=== PATIENT | male | born 1985 ===

== ENCOUNTER 2017-07-24 09:16 | Emergency (ER) | payer MEDICAID ==
[2017-07-24 09:26] VITALS: BMI 24.6
[2017-07-24] MEDS ORDERED: Sodium Chloride 0.9% 1,000 ML IV STA (10:11)
[2017-07-24 10:52] LABS: BASO % 0.3 % (0.0-2.0); EOS # 0.4 K/uL (0.0-0.7); EOS % 4.8 % (0.0-4.0); LYMPH # 0.8 K/uL (1.0-4.3); LYMPH % 8.6 % (20.0-40.0); MEAN CELL VOLUME 82.5 fl (80.0-94.0); MEAN CORPUSCULAR HEMOGLOBIN 27.3 pg (27.0-31.0); MEAN CORPUSCULAR HGB CONC 33.1 g/dL (33.0-37.0); MEAN PLATELET VOLUME 10.1 fl (7.2-11.7); MONO # 0.5 K/uL (0.0-0.8); NEUT # 7.3 K/uL (1.8-7.0); NEUT % 81.3 % (50.0-75.0); NRBC % 0.1 % (0.0-0.0); PLATELET COUNT 239 K/uL (130-400); RBC 5.87 Mil/uL (4.40-5.90); RED CELL DISTRIBUTION WIDTH 13.3 % (11.5-14.5); WHITE BLOOD COUNT 8.9 K/uL (4.8-10.8)
[2017-07-24 10:59] LABS: ALB/GLOB RATIO 1.3 (1.0-2.1); ALBUMIN 3.9 g/dL (3.5-5.0); ALT/SGPT 47 U/L (21-72); AST/SGOT 28 U/L (17-59); BLOOD UREA NITROGEN 7 mg/dl (9-20); CALCIUM 9.2 mg/dL (8.4-10.2); GFR AFRICAN-AMERICAN > 60; GFR NON-AFRICAN AMERICAN > 60; LIPASE 59 U/L (23-300)
--- NOTE | 2017-07-24 11:20 | ED PDOC ---
HPI: Abdomen Time Seen by Provider: 07/24/17 09:38 Chief Complaint (Nursing): Abdominal Pain Chief Complaint (Provider): Abdominal Pain History Per: Patient History/Exam Limitations: no limitations Onset/Duration Of Symptoms: Days (x5) Outside of [place] travel?: No Current Symptoms Are (Timing): Still Present Pain Scale Rating Of: 8 Location Of Pain/Discomfort: Epigastric Associated Symptoms: Vomiting, Diarrhea. denies: Fever Additional Complaint(s): Deuce Weeks is a 31 year old male, with a past medical history of gastritis, and hiatal hernia, who presents to the emergency department complaining of constant epigastric abdominal pain associated with vomiting and diarrhea onset for x5 days. Patient states the pain radiates to the mid back and has been constant during day and night. He reports several episodes of vomiting and diarrhea but only one episode of loose stools. No recent alcohol or drug use. He did not take any medication for current symptoms. He denies any fever, sick contacts or recent travels. No further medical complaints. PMD: None provided. Past Medical History Reviewed: Historical Data, Nursing Documentation, Vital Signs Vital Signs: Last Vital Signs Temp 97 F L 07/24/17 09:32 Pulse 103 H 07/24/17 09:32 Resp 18 07/24/17 09:32 BP 126/79 07/24/17 09:32 Pulse Ox 98 07/24/17 15:19 - Medical History PMH: Hiatal Hernia - Surgical History Surgical History: No Surg Hx - Family History Family History: States: Unknown Family Hx - Social History Current smoker - smoking cessation education provided: Yes (Heavy smoker >10 cigarettes daily) Alcohol: Occasional Drugs: Denies - Immunization History Hx Tetanus Toxoid Vaccination: No Hx Influenza Vaccination: No - Home Medications Home Medications: Ambulatory Orders Medication Instructions Recorded Ciprofloxacin HCl [Cipro] 500 mg PO BID #14 tablet 07/24/17 Metronidazole [Flagyl] 500 mg PO BID #14 tablet 07/24/17 - Allergies Allergies/Adverse Reactions: Allergies Allergy/AdvReac Type Severity Reaction Status Date / Time No Known Allergies Allergy Verified 07/24/17 09:32 Review of Systems ROS Statement: Except As Marked, All Systems Reviewed And Found Negative Constitutional: Negative for: Fever Gastrointestinal: Positive for: Vomiting, Abdominal Pain (epigastric), Diarrhea Physical Exam - Reviewed Nursing Documentation Reviewed: Yes Vital Signs Reviewed: Yes - Physical Exam Appears: Positive for: Non-toxic, Uncomfortable Head Exam: Positive for: ATRAUMATIC, NORMAL INSPECTION Skin: Positive for: Normal Color, Warm, Dry Eye Exam: Positive for: Normal appearance, EOMI Neck: Positive for: Painless ROM, Supple Cardiovascular/Chest: Positive for: Regular Rate, Rhythm. Negative for: Murmur Respiratory: Positive for: Normal Breath Sounds. Negative for: Respiratory Distress Gastrointestinal/Abdominal: Positive for: Tenderness (epigastric, RUQ, RLQ). Negative for: Guarding, Rebound Extremity: Positive for: Normal ROM. Negative for: Deformity, Swelling Neurologic/Psych: Positive for: Alert, Oriented - Laboratory Results Result Diagrams: 07/24/17 10:42 07/24/17 10:42 - ECG O2 Sat by Pulse Oximetry: 98 (RA) Pulse Ox Interpretation: Normal Medical Decision Making Medical Decision Making: Initial Impression: abdominal pain. Differential diagnoses includes: cholecystitis, pancreatitis, gastritis, acute appendicitis Initial Plan: --Urine dipstick --CBC w/ differential --Morphine 4 mg IVP --NS IV 1,000 ml @ 1,000 mls/hr --Zofran Inj 4 mg IV --Abdomen Limited (GB INCLUDED) [US] --reevaluation 11:31 Abdomen US FINDINGS: LIVER: Measures 17.0 cm in length. Normal echogenicity of the liver parenchyma. No mass. No intrahepatic bile duct dilatation. GALLBLADDER: Unremarkable. No gallstones. No sonographic Pack sign. Moderate gallbladder distention is appreciated. COMMON BILE DUCT: Measures 2.7 mm. No stones. No dilatation. PANCREAS: Unremarkable as visualized. No mass. No ductal dilatation. RIGHT KIDNEY: Measures 10.0 cm in length. Normal echogenicity. No calculus, mass, or hydronephrosis. AORTA: No aneurysmal dilatation. IVC: Unremarkable. OTHER FINDINGS: None . IMPRESSION: Unremarkable limited abdomen ultrasound as per above. 14:58 Abdomen/Pelvis CT FINDINGS: LOWER THORAX: Unremarkable. LIVER: Hepatic steatosis. No focal masses. No intrahepatic bile duct dilatation or perihepatic ascites. GALLBLADDER AND BILE DUCTS: Unremarkable. PANCREAS: Unremarkable. No gross lesion or ductal dilatation. SPLEEN: Unremarkable. ADRENALS: Unremarkable. No mass. KIDNEYS AND URETERS: Unremarkable. No hydronephrosis. No solid mass. VASCULATURE: Unremarkable. No aortic aneurysm. BOWEL: Severe a ileitis with sparing of the terminal ileum, ileocecal valve region. Proximal dilatation without florid obstruction identified. Areas of the descending colon displays similar, less pronounced features, the overall appearance suggests post disease including Crohn's ileitis APPENDIX: Normal appendix. PERITONEUM: Unremarkable. No free fluid. No free air. LYMPH NODES: Unremarkable. No enlarged lymph nodes. BLADDER: Unremarkable. REPRODUCTIVE: Unremarkable. BONES: No acute fracture. OTHER FINDINGS: None. IMPRESSION: Severe ileitis without involvement of the ileocecal valve region. Less pronounced inflammatory changes are seen in the descending colon. The most likely etiology is Crohn's disease. No free air, free fluid, drainable collection. No evidence of closed loop obstruction. Scribe Attestation: Documented by Ghassan Case, acting as a scribe for Leo Zaldivar MD Provider Scribe Attestation: All medical record entries made by the Scribe were at my direction and personally dictated by me. I have reviewed the chart and agree that the record accurately reflects my personal performance of the history, physical exam, medical decision making, and the department course for this patient. I have also personally directed, reviewed, and agree with the discharge instructions and disposition. Disposition - Clinical Impression Clinical Impression: Abdominal pain, Colitis - Patient ED Disposition Is Patient to be Admitted: No Doctor Will See Patient In The: Office Counseled Patient/Family Regarding: Studies Performed, Diagnosis - Disposition Referrals: [facility] [Outside] Melanie WEST,MD Herminio [Medical Doctor] - Disposition: Routine/Home Disposition Time: 15:36 Condition: GOOD Additional Instructions: Take your medications as instructed. Follow up with your PCP in 2-3 days. Prescriptions: Ciprofloxacin HCl [Cipro] 500 mg PO BID #14 tablet Metronidazole [Flagyl] 500 mg PO BID #14 tablet Instructions: Colitis (ED)
--- NOTE | 2017-07-24 11:33 | US ---
HISTORY: abdominal pain COMPARISON: None. TECHNIQUE: Sonographic evaluation of the right upper quadrant of the abdomen. FINDINGS: LIVER: Measures 17.0 cm in length. Normal echogenicity of the liver parenchyma. No mass. No intrahepatic bile duct dilatation. GALLBLADDER: Unremarkable. No gallstones. No sonographic Pack sign. Moderate gallbladder distention is appreciated. COMMON BILE DUCT: Measures 2.7 mm. No stones. No dilatation. PANCREAS: Unremarkable as visualized. No mass. No ductal dilatation. RIGHT KIDNEY: Measures 10.0 cm in length. Normal echogenicity. No calculus, mass, or hydronephrosis. AORTA: No aneurysmal dilatation. IVC: Unremarkable. OTHER FINDINGS: None . IMPRESSION: Unremarkable limited abdomen ultrasound as per above.
[2017-07-24 12:57] LABS: EOSINOPHIL 4 % (0-7); LYMPHOCYTE 7 % (20-50); MONOCYTE 6 % (0-10); NEUTROPHIL 83 % (42-75); PLATELET ESTIMATE NORMAL (NORMAL); TOTAL CELLS COUNTED 100
[2017-07-24] MEDS ORDERED: Morphine 4 MG/ML VIAL ONE (13:19)
[2017-07-24] MEDS ORDERED: Iohexol 300 100 ML IJ ONE (13:42)
--- NOTE | 2017-07-24 15:00 | CT ---
PROCEDURE: CT Abdomen and Pelvis with contrast HISTORY: abdominal pain COMPARISON: None. TECHNIQUE: Contrast dose: 100 cc Visipaque 320 Radiation dose: Total exam DLP = 484.11 1st mGy-cm. This CT exam was performed using one or more of the following dose reduction techniques: Automated exposure control, adjustment of the mA and/or kV according to patient size, and/or use of iterative reconstruction technique. FINDINGS: LOWER THORAX: Unremarkable. LIVER: Hepatic steatosis. No focal masses. No intrahepatic bile duct dilatation or perihepatic ascites. GALLBLADDER AND BILE DUCTS: Unremarkable. PANCREAS: Unremarkable. No gross lesion or ductal dilatation. SPLEEN: Unremarkable. ADRENALS: Unremarkable. No mass. KIDNEYS AND URETERS: Unremarkable. No hydronephrosis. No solid mass. VASCULATURE: Unremarkable. No aortic aneurysm. BOWEL: Severe a ileitis with sparing of the terminal ileum, ileocecal valve region. Proximal dilatation without florid obstruction identified. Areas of the descending colon displays similar, less pronounced features, the overall appearance suggests post disease including Crohn's ileitis APPENDIX: Normal appendix. PERITONEUM: Unremarkable. No free fluid. No free air. LYMPH NODES: Unremarkable. No enlarged lymph nodes. BLADDER: Unremarkable. REPRODUCTIVE: Unremarkable. BONES: No acute fracture. OTHER FINDINGS: None. IMPRESSION: Severe ileitis without involvement of the ileocecal valve region. Less pronounced inflammatory changes are seen in the descending colon. The most likely etiology is Crohn's disease. No free air, free fluid, drainable collection. No evidence of closed loop obstruction.
[2017-07-24 15:45] VITALS: BP 132/74; PULSE 86; RESP 19; TEMP 98.6; O2SAT 100
== END 2017-07-24 15:45 | disposition home or self-care (01) ==
LOC: H.ER 09:16
DX: K52.9 Noninfective gastroenteritis and colitis, unspecified (principal)
CPT/HCPCS: 74177; 76705; 80053; 83690; 85025; 96374; 99283; J2270; J2405; J7040; Q9967

== ENCOUNTER 2018-03-29 10:05 | Emergency (ER) | payer SELFPAY ==
[2018-03-29 10:06] VITALS: BMI 24.6
[2018-03-29 10:12] VITALS: RESP 18; TEMP 98
[2018-03-29] MEDS ORDERED: Sodium Chloride 0.9% 1,000 ML IV STA (10:44)
--- NOTE | 2018-03-29 11:11 | ED PDOC ---
HPI: Abdomen Time Seen by Provider: 03/29/18 10:21 Chief Complaint (Nursing): Abdominal Pain Chief Complaint (Provider): Abdominal Pain History Per: Patient History/Exam Limitations: no limitations Onset/Duration Of Symptoms: Days (x2 weeks) Current Symptoms Are (Timing): Still Present Additional Complaint(s): 32-year-old male presenting for evaluation of abdominal pain x2 weeks. Patient states hes had intermittent, non-radiating epigastric abdominal pain. He reports episodes occur 3 times a day, everday, and are associated with nausea, vomiting, diarrhea, and diarrhea with blood. Patient also reports feeling feverish for the past few days. He states symptoms are worse when he eats and his last episode of diarrhea was yesterday afternoon after eating. He denies any history of abdominal surgery or urinary symptoms. Past Medical History Vital Signs: Last Vital Signs Temp 98.0 F 03/29/18 13:45 Pulse 65 03/29/18 13:45 Resp 18 03/29/18 13:45 BP 121/73 03/29/18 13:45 Pulse Ox 98 03/29/18 13:57 - Medical History PMH: Hiatal Hernia - Family History Family History: States: Unknown Family Hx - Immunization History Hx Tetanus Toxoid Vaccination: No Hx Influenza Vaccination: No - Home Medications Home Medications: Ambulatory Orders Medication Instructions Recorded Ciprofloxacin HCl [Cipro] 500 mg PO BID #14 tablet 07/24/17 Metronidazole [Flagyl] 500 mg PO BID #14 tablet 07/24/17 Esomeprazole Magnesium [Nexium] 20 mg PO DAILY #30 capsule. 03/29/18 Ondansetron ODT [Zofran ODT] 4 mg PO DAILY PRN #20 odt 03/29/18 - Allergies Allergies/Adverse Reactions: Allergies Allergy/AdvReac Type Severity Reaction Status Date / Time No Known Allergies Allergy Verified 03/29/18 10:27 Review of Systems ROS Statement: Except As Marked, All Systems Reviewed And Found Negative Gastrointestinal: Positive for: Nausea, Vomiting, Abdominal Pain, Diarrhea Genitourinary Male: Negative for: Dysuria, Frequency, Incontinence Physical Exam - Reviewed Nursing Documentation Reviewed: Yes Vital Signs Reviewed: Yes - Physical Exam Comments: GENERAL APPEARANCE: Patient is awake, alert, oriented x 3, in no acute distress. Laying in bed comfortably. SKIN: Warm, dry; (-) cyanosis. EYES: (-) conjunctival pallor, (-) scleral icterus. ENMT: Dry mucous membranes. NECK: (-) tenderness, (-) stiffness, (-) lymphadenopathy. CHEST AND RESPIRATORY: (-) rales, (-) rhonchi, (-) wheezes; breath sounds equal bilaterally. HEART AND CARDIOVASCULAR: (-) irregularity; (-) murmur, (-) gallop. ABDOMEN AND GI: (-) distention. Bowel sounds active; (+) mild epigastric tenderness, (-) guarding, (-) rebound, (-) palpable masses, (-) CVA tenderness. (-) Pack's sign. EXTREMITIES: (-) deformity, (-) edema, (+) distal pulses. NEURO AND PSYCH: Mental status as above; (-) focal findings. - Laboratory Results Result Diagrams: 03/29/18 11:07 03/29/18 11:07 - ECG O2 Sat by Pulse Oximetry: 98 (RA) Pulse Ox Interpretation: Normal Medical Decision Making Medical Decision Making: Previous medical records reviewed : patient seen in this ED on 07/2017 for similar symptoms of epigastric pain, N/V/D. Patient had an US abd which was unremarkable, as well as a CT A/P which showed severe ileitis without involvement of the ileocecal valve region. Less pronounced inflammatory changes are seen in the descending colon. The most likely etiology is Crohn's disease. Impression : dyspepsia, consider gastroenteritis. Plan: -CMP -Lipase -Urine dipstick -CBC -1LNS -Pepcid 20mg IVP -Zofran 4mg IVP -IV insertion -Reevaluation On re-evaluation, patient reports improvement of symptoms, denies any abdominal pain, N/V/D. On exam, patient remains AAOx3, in no acute distress. Abdomen soft , non-tender, with no guarding and no rebound. VSS. Lab results reviewed and wnl. WBC is wnl. Udip (-). Diagnostic results d/w the patient in great detail. Diagnosis of abdominal pain and dyspepsia d/w the patient. CT report from 07/2017 was d/w the patient, he admits that he did not f/u with any doctor after his ED visit in 07/2017. He admits that he has had a prior endoscopy 2 years ago which showed inflammation to his esophagus and at that time Rx omeprazole, which he stopped taking after the Rx ran out. Based on history, exam and diagnostic results, plan will be for outpatient follow up. Advised that he needs to f/u regarding his symptoms and possible h/o crohn's seen in prior CT. Copy of prior CT given to the patient. Patient instructed to follow-up with the clinic in 1-2 days without fail. Advised to take medication as prescribed. Return to the emergency room at any time for any new or worsening symptoms. Patient states he fully agrees with and understands discharge instructions. States that he agrees with the plan and disposition. Verbalized and repeated discharge instructions and plan. I have given the patient opportunity to ask any additional questions. Scribe Attestation: Documented by Tay Rudolph, acting as a scribe for Concetta Welch PA-C. Provider Scribe Attestation: All medical record entries made by the Scribe were at my direction and personally dictated by me. I have reviewed the chart and agree that the record accurately reflects my personal performance of the history, physical exam, medical decision making, and the department course for this patient. I have also personally directed, reviewed, and agree with the discharge instructions and disposition. Disposition - Clinical Impression Clinical Impression: Abdominal pain, Vomiting and diarrhea, Dyspepsia - Patient ED Disposition Is Patient to be Admitted: No Counseled Patient/Family Regarding: Studies Performed, Diagnosis, Need For Followup, Rx Given - Disposition Referrals: [facility] [Outside] Disposition: Routine/Home Disposition Time: 13:30 Condition: STABLE Additional Instructions: Thank you for letting us take care of you today. You were treated for abdominal pain, dyspepsia, vomiting and diarrhea. The emergency medical care you received today was directed towards the acute presenting symptoms. If you were prescribed any medication, please fill it and give as directed. It may take several days for your symptoms to resolve. Return to the Emergency Department at any time if symptoms worsen, do not improve, or if any other problems arise. Please call one of the physicians/clinics you have been referred to that are listed on the Patient Visit Information form that is included in your discharge packet. Bring any paperwork you were given at discharge with you along with any medications to your follow up visit. Our treatment cannot replace ongoing medical care by a primary care provider (PCP) outside of the emergency department. Thank you for allowing the [facility] team to be part of your care today. Prescriptions: Esomeprazole Magnesium [Nexium] 20 mg PO DAILY #30 capsule. Ondansetron ODT [Zofran ODT] 4 mg PO DAILY PRN #20 odt PRN Reason: Nausea/Vomiting Instructions: Dyspepsia, Acute Abdomen (Belly Pain), Adult (DC), Nausea and Vomiting, Adult (DC) Forms: [employer] (Swazi), [facility] ED School/Work Excuse Print Language: [place]
[2018-03-29 11:27] LABS: ALB/GLOB RATIO 1.2 (1.0-2.1); ALBUMIN 3.3 g/dL (3.5-5.0); ALT/SGPT 40 U/L (21-72); AST/SGOT 39 U/L (17-59); BLOOD UREA NITROGEN 5 mg/dl (9-20); CALCIUM 8.9 mg/dL (8.4-10.2); GFR AFRICAN-AMERICAN > 60; GFR NON-AFRICAN AMERICAN > 60; LIPASE 83 U/L (23-300)
[2018-03-29 11:28] LABS: BASO % 0.5 % (0.0-2.0); EOS # 0.2 K/uL (0.0-0.7); EOS % 5.2 % (0.0-4.0); HEMOGLOBIN 15.1 g/dL (12.0-18.0); LYMPH # 0.6 K/uL (1.0-4.3); LYMPH % 16.7 % (20.0-40.0); MEAN CELL VOLUME 82.5 fl (80.0-94.0); MEAN CORPUSCULAR HEMOGLOBIN 27.1 pg (27.0-31.0); MEAN CORPUSCULAR HGB CONC 32.9 g/dL (33.0-37.0); MEAN PLATELET VOLUME 9.4 fl (7.2-11.7); MONO # 0.5 K/uL (0.0-0.8); MONO % 12.6 % (0.0-10.0); NEUT # 2.4 K/uL (1.8-7.0); RBC 5.58 Mil/uL (4.40-5.90); RED CELL DISTRIBUTION WIDTH 13.9 % (11.5-14.5); WHITE BLOOD COUNT 3.7 K/uL (4.8-10.8)
[2018-03-29 13:54] VITALS: BP 121/73; PULSE 65
[2018-03-29 13:57] VITALS: O2SAT 98
== END 2018-03-29 13:45 | disposition home or self-care (01) ==
LOC: H.ER 10:05
DX: R10.13 Epigastric pain (principal); R11.2 Nausea with vomiting, unspecified; R19.7 Diarrhea, unspecified
CPT/HCPCS: 80053; 83690; 85025; 96374; 96375; 99283; J2405; J7030